=== PATIENT | male | born 1960 | race Hispanic/Latino ===

== ENCOUNTER 2021-11-25 14:08 | Emergency (ER) | payer BC ==
[~2021-11-25] VITALS: Ht 175.3 cm; Wt 95.3 kg
[2021-11-25 14:09] VITALS: BP 129/89
[2021-11-25] MEDS ORDERED: DICYCLOMINE 20MG (10MG/ML) AMP IM STA (14:24)
[2021-11-25] MEDS ORDERED: ONDANSETRON 4MG INJ IVP ONE (14:30)
[2021-11-25] MEDS ORDERED: 0.9%NACL 1000ML 1,000 ML IV ONE (14:30)
[2021-11-25 14:31] LABS: BASOPHILS % (AUTO) 0.7 % (0.0-5.0); EOSINOPHILS % (AUTO) 4.8 % (0.0-8.0); HEMATOCRIT 39.7 % (42-54); LYMPHOCYTES % (AUTO) 19.8 % (21.0-51.0); MEAN CORPUSCULAR HEMOGLOBIN 32.5 pg (27.0-33.0); MEAN CORPUSCULAR VOLUME 95.4 fL (79-99); MONOCYTES % (AUTO) 12.4 % (3.0-13.0); NEUTROPHILS % (AUTO) 61.9 % (40.0-77.0); PLATELET COUNT (AUTO) 348 K/uL (130-400); RED BLOOD CELL COUNT(AUTO) 4.16 MIL/uL (4.50-6.20); RED CELL DISTRIBUTION WIDTH 12.6 % (11.0-15.5); WHITE BLOOD COUNT (AUTO) 7.6 K/uL (4.8-10.8)
[2021-11-25 14:51] LABS: ALBUMIN 3.3 g/dL (3.5-5.0); BILIRUBIN,TOTAL 0.2 mg/dL (0.2-1.0); CREATININE 0.9 mg/dL (0.5-1.5); POTASSIUM 3.7 mmol/L (3.5-5.1); TOTAL PROTEIN, SERUM 6.7 g/dL (6.0-8.3)
[2021-11-25] MEDS ORDERED: DICY20TA2 PO (16:24)
[2021-11-25] MEDS ORDERED: ONDA4TAB10 PO (16:24)
[2021-11-25] MEDS ORDERED: BACI1CAP6 PO (16:24)
== END 2021-11-25 17:20 | disposition home or self-care (01) ==
LOC: EDH 14:08
DX: K52.9 Noninfective gastroenteritis and colitis, unspecified (principal); Z88.6 Allergy status to analgesic agent; Z79.899 Other long term (current) drug therapy; Z20.822 Contact with and (suspected) exposure to COVID-19
CPT/HCPCS: 36415; 80053; 83690; 84484; 85025; 87635; 87804 ×2; 93005; 96361; 96372; 96374; 99284; C9803; J0500; J2405; J7030